=== PATIENT | male | born 1995 | race Caucasian/White ===

== ENCOUNTER 2017-07-12 21:23 | Emergency (ER) | payer MEDICAID, OTHER ==
--- NOTE | 2017-07-12 21:45 | EDM.PDOC ---
ED HPI GENERAL MEDICAL PROBLEM - General Chief Complaint: Skin Complaint Stated Complaint: SKIN PROBLEM Time Seen by Provider: 07/12/17 21:34 Source of Information: Reports: Patient, Family History Limitations: Reports: No Limitations - History of Present Illness INITIAL COMMENTS - FREE TEXT/NARRATIVE: Patient comes in with his mom. He has had a crack in in gluteal area for several months or longer. Mom thought it looked red tonight so he came in to get it looked at. Patient denies pain, irritation or discharge. He states it sometimes bleeds when he has a bowel movement but is above his anus. Onset: Gradual, Unknown/Unsure (Patent thinks has had for several months or longer.) Duration: Other (several months or longer) Location: Reports: Other (in gluteal cleft) Quality: Reports: Other (no pain, burning or discharge has been noted by patient ) Improves with: Reports: None Worsens with: Reports: None Associated Symptoms: Reports: No Other Symptoms - Related Data Allergies Allergy/AdvReac Type Severity Reaction Status Date / Time No Known Allergies Allergy Verified 07/12/17 21:29 Home Meds: Home Meds . [No Known Home Meds] 07/12/17 [History] Past Medical History - Past Health History Medical/Surgical History: Denies Medical/Surgical History Musculoskeletal History: Reports: Fracture Other Musculoskeletal History: HAND FRACTURE - Past Surgical History Musculoskeletal Surgical History: Reports: None Social & Family History - Tobacco Use Smoking Status *Q: Never Smoker ED ROS GENERAL - Review of Systems Review Of Systems: ROS reveals no pertinent complaints other than HPI. Constitutional: Reports: No Symptoms HEENT: Reports: No Symptoms Respiratory: Reports: No Symptoms Cardiovascular: Reports: No Symptoms Endocrine: Reports: No Symptoms GI/Abdominal: Reports: No Symptoms : Reports: No Symptoms Musculoskeletal: Reports: No Symptoms Skin: Reports: No Symptoms Neurological: Reports: No Symptoms Psychiatric: Reports: No Symptoms Hematologic/Lymphatic: Reports: No Symptoms Immunologic: Reports: No Symptoms ED EXAM, SKIN/RASH Exam: See Below Exam Limited By: No Limitations General Appearance: Alert, WD/WN, No Apparent Distress Respiratory/Chest: No Respiratory Distress, Lungs Clear, Normal Breath Sounds, No Accessory Muscle Use, Chest Non-Tender Rectal (Males) Exam: Other (Patient has a linear vertical full skin thickness fissure in the gluteal cleft just superior to the anus. It is not in the anal ring itself but and inch or two above it. It was lightly probed with a sterile Q-tip and is over half an inch deep or more. It is clean with no odor, scant blood visible in the base with a probe but no odor, redness, purulent discharge or signs of infection are noted.) Neurological: Alert, Oriented Course - Vital Signs Last Recorded V/S: Last Vital Signs Temp 36.8 C 07/12/17 21: Pulse 77 07/12/17 21: Resp 16 07/12/17 21: BP 132/58 L 07/12/17 21: Pulse Ox 98 07/12/17 21:23 - Re-Assessments/Exams Free Text/Narrative Re-Assessment/Exam: 07/12/17 22:02 Patient evaluated and advised no signs of infection are noted. He is advised of the nature of the fissure. It is possible it involves a fistula but only a shallow probe was done tonight. Patient advised he needs a surgical consult for further evaluations and recommendations for treatment. He goes to school in [facility] [place] ([place] so was given the contact info for [facility] there to contact on Friday for an appointment. He was given info on anal fissures which is not what this is but at least it dscusses the nature of fissures of the rectal and gluteal area. Patient advised what to watch for that would signal infection. He verbalized understanding of the information. Departure - Departure Time of Disposition: 22:00 Disposition: Home, Self-Care 01 Condition: Good Clinical Impression: Gluteal cleft wound Qualifiers: Encounter type: initial encounter Laterality: unspecified laterality Qualified Code(s): S31.809A - Unspecified open wound of unspecified buttock, initial encounter - Discharge Information Instructions: Anal Fissure, Adult Forms: ED Department Discharge Additional Instructions: Contact the the [facility] in [facility] [place] for an appointment with a general surgeon. Tell them you need an evaluation for a gluteal cleft fissure. Do this as soon as possible. They will evaluate and give you recomendations for treatment.
== END 2017-07-12 21:55 | disposition home or self-care (01) ==
LOC: CC.ED 21:23
DX: S31.809A Unspecified open wound of unspecified buttock, initial encounter (principal); X58.XXXA Exposure to other specified factors, initial encounter
CPT/HCPCS: 99282